=== PATIENT | female | born 1975 ===

== ENCOUNTER 2018-04-26 13:03 | Emergency (ER) | payer OTHER ==
[2018-04-26 13:32] VITALS: RESP 18; O2SAT 100
[2018-04-26] MEDS ORDERED: Alum-Mag Hydrox-Simethicone Susp (30 mL) PO STA (14:26)
[2018-04-26] MEDS ORDERED: Sodium Chloride 0.9% 1,000 ML IV STA (14:26)
--- NOTE | 2018-04-26 15:26 | US ---
Date of service: 04/26/2018 HISTORY: r/o gallstone COMPARISON: 12/12/2014 TECHNIQUE: Sonographic evaluation of the right upper quadrant of the abdomen. FINDINGS: LIVER: Measures 15.2 cm in length. Patent portal vein. Portal venous flow: Hepatopetal. Unremarkable echogenicity of the liver parenchyma. No mass. No intrahepatic bile duct dilatation. GALLBLADDER: Unremarkable. No gallstones. COMMON BILE DUCT: Measures 6.3 mm. No stones. No dilatation. PANCREAS: Unremarkable as visualized. No mass. No ductal dilatation. RIGHT KIDNEY: Measures 4.5 x 10.6 cm in length. Normal echogenicity. No calculus, mass, or hydronephrosis. AORTA: No aneurysmal dilatation. IVC: Unremarkable. OTHER FINDINGS: None . IMPRESSION: Unremarkable study.
[2018-04-26] MEDS ORDERED: Alum-Mag Hydrox-Simethicone Susp (30 mL) ONE (15:30)
--- NOTE | 2018-04-26 16:20 | ED PDOC ---
HPI: Abdomen Time Seen by Provider: 04/26/18 14:26 Chief Complaint (Nursing): Abdominal Pain Chief Complaint (Provider): ABDOMINAL PAIN History Per: Patient (42 Y/O FEMALE HERE WITH ABDOMINAL PAIN X 2 WEEKS NOTED EPIGASTRIC RADIATING TO CHEST AND THROAT. FEELS SYMPTOMS ARE WORSE IN AM. DENIES ANY VOMITING/DIARRHEA/FEVERS/CHILLS. NO H/O ABDOMINAL SX.) Past Medical History Reviewed: Historical Data, Nursing Documentation, Vital Signs Vital Signs: Last Vital Signs Temp 98.3 F 04/26/18 13:29 Pulse 80 04/26/18 13:29 Resp 18 04/26/18 13:29 BP 117/73 04/26/18 13:29 Pulse Ox 100 04/26/18 13:29 - Medical History PMH: Denies: Chronic Kidney Disease - Surgical History Surgical History: ( x2) - Family History Family History: States: Unknown Family Hx - Immunization History Hx Tetanus Toxoid Vaccination: No Hx Influenza Vaccination: Yes Hx Pneumococcal Vaccination: No - Home Medications Home Medications: Ambulatory Orders Medication Instructions Recorded Ibuprofen [Motrin] 600 mg PO TID PRN #20 tab 03/26/15 Oxycodone HCl/Acetaminophen 1 tab PO Q6 PRN #6 tab 03/26/15 [Percocet 325 mg-5 mg] Amoxicillin/Clavulanate [Augmentin 1 tab PO BID #20 tab 10/05/15 875 MG-125 MG] Fluticasone Nasal [Flonase] 1 actuation NS DAILY #1 spr 10/05/15 Naproxen 375 mg PO Q8 PRN #21 tab 10/05/15 Pseudoephedrine [Sudafed Tab] 1 tab PO Q6 PRN #24 tab 10/05/15 Pantoprazole Sodium [Protonix] 40 mg PO DAILY #15 ect 04/26/18 - Allergies Allergies/Adverse Reactions: Allergies Allergy/AdvReac Type Severity Reaction Status Date / Time polidocanol AdvReac RASH Verified 04/26/18 13:29 Review of Systems ROS Statement: Except As Marked, All Systems Reviewed And Found Negative Gastrointestinal: Positive for: Abdominal Pain Physical Exam - Reviewed Nursing Documentation Reviewed: Yes Vital Signs Reviewed: Yes - Physical Exam Appears: Positive for: Well, Non-toxic, No Acute Distress Head Exam: Positive for: ATRAUMATIC, NORMAL INSPECTION, NORMOCEPHALIC Skin: Positive for: Normal Color, Warm, DRY Eye Exam: Positive for: EOMI, Normal appearance, PERRL ENT: Positive for: Normal ENT Inspection Neck: Positive for: Normal, Painless ROM Cardiovascular/Chest: Positive for: Regular Rate, Rhythm Respiratory: Positive for: CNT, Normal Breath Sounds Gastrointestinal/Abdominal: Positive for: Normal Exam, Soft, Tenderness (EPIGASTRIC) Back: Positive for: Normal Inspection Extremity: Positive for: Normal ROM Neurologic/Psych: Positive for: Alert, Oriented - Laboratory Results Result Diagrams: 04/26/18 15:38 04/26/18 15:38 Urine POC: Negative - ECG O2 Sat by Pulse Oximetry: 100 - Progress ED Course And Treament: MAALOX 30 ML PO X 1 DOSE VISCOUS LIDOCAINE 5ML PO X 1 DOSE PEPCID 20 MG IV X 1 DOSE Date of service: 04/26/2018 HISTORY: r/o gallstone COMPARISON: 12/12/2014 TECHNIQUE: Sonographic evaluation of the right upper quadrant of the abdomen. FINDINGS: LIVER: Measures 15.2 cm in length. Patent portal vein. Portal venous flow: Hepatopetal. Unremarkable echogenicity of the liver parenchyma. No mass. No intrahepatic bile duct dilatation. GALLBLADDER: Unremarkable. No gallstones. COMMON BILE DUCT: Measures 6.3 mm. No stones. No dilatation. PANCREAS: Unremarkable as visualized. No mass. No ductal dilatation. RIGHT KIDNEY: Measures 4.5 x 10.6 cm in length. Normal echogenicity. No calculus, mass, or hydronephrosis. AORTA: No aneurysmal dilatation. IVC: Unremarkable. OTHER FINDINGS: None . IMPRESSION: Unremarkable study. patient improved after medication. Notes symptom resolution. EKG: SINUS BRADYCARDIA 57BPM NO ECTOPY NO ACAUTE CHAGNES. T WAVE V1-V2 Disposition - Clinical Impression Clinical Impression: Gastritis, GERD (gastroesophageal reflux disease) - Patient ED Disposition Is Patient to be Admitted: No - Disposition Referrals: Roverto James MD [Staff Provider] - [facility] [Outside] Disposition: Routine/Home Disposition Time: 17:25 Condition: FAIR Prescriptions: Pantoprazole Sodium [Protonix] 40 mg PO DAILY #15 ect Instructions: Gastritis, Acid Reflux (Gastroesophageal Reflux Disease), Adult (DC), Gastritis (DC) Forms: [facility] ED School/Work Excuse Print Language: YI
[2018-04-26 16:35] LABS: BASO % 0.6 % (0.0-2.0); EOS # 0.2 K/uL (0.0-0.7); EOS % 5.3 % (0.0-4.0); HEMOGLOBIN 11.6 g/dL (12.0-16.0); LYMPH # 1.8 K/uL (1.0-4.3); LYMPH % 43.7 % (20.0-40.0); MEAN CELL VOLUME 85.7 fl (81.0-99.0); MEAN CORPUSCULAR HEMOGLOBIN 27.9 pg (27.0-31.0); MEAN CORPUSCULAR HGB CONC 32.5 g/dL (33.0-37.0); MEAN PLATELET VOLUME 9.1 fl (7.2-11.7); MONO # 0.2 K/uL (0.0-0.8); MONO % 5.8 % (0.0-10.0); NEUT # 1.8 K/uL (1.8-7.0); NEUT % 44.6 % (50.0-75.0); RBC 4.15 Mil/uL (3.80-5.20); RED CELL DISTRIBUTION WIDTH 14.2 % (11.5-14.5); WHITE BLOOD COUNT 4.1 K/uL (4.8-10.8)
[2018-04-26 16:44] LABS: ALB/GLOB RATIO 1.3 (1.0-2.1); ALBUMIN 4.3 g/dL (3.5-5.0); ALT/SGPT 25 U/L (9-52); AST/SGOT 37 U/L (14-36); BLOOD UREA NITROGEN 14 mg/dl (7-17); CALCIUM 9.3 mg/dL (8.4-10.2); GFR NON-AFRICAN AMERICAN > 60; LIPASE 69 U/L (23-300)
[2018-04-26 16:49] LABS: SQUAMOUS EPITHIAL 19 /hpf (0-5); URINE BACTERIA OCC (<OCC); URINE BILIRUBIN NEGATIVE (NEGATIVE); URINE BLOOD NEGATIVE (NEGATIVE); URINE CLARITY CLOUDY (Clear); URINE COLOR YELLOW (YELLOW); URINE GLUCOSE (UA) NEG (NEGATIVE); URINE LEUKOCYTE ESTERASE TRACE Leu/uL (Negative); URINE PROTEIN NEGATIVE (NEGATIVE); URINE UROBILINOGEN 0.2-1.0 mg/dL (0.2-1.0)
[2018-04-26 18:24] VITALS: BP 106/61; PULSE 65; TEMP 98.1
--- NOTE | 2018-04-27 09:04 | CARD ---
APPROVED REPORT Date of service: 04/26/2018 EKG Measurement Heart [id number] <Conclusion> Sinus bradycardia Otherwise normal ECG
== END 2018-04-26 18:19 | disposition home or self-care (01) ==
LOC: H.ER 13:03
DX: K21.9 Gastro-esophageal reflux disease without esophagitis (principal); K29.70 Gastritis, unspecified, without bleeding
CPT/HCPCS: 76705; 80053; 81003; 81025; 83690; 85025; 87086; 93005; 96361; 96374; 99284; J7030